=== PATIENT | male | born 1960 | race Caucasian/White ===

== ENCOUNTER → 2019-03-21 15:43 | Outpatient (CLI) | payer MEDICARE ==
[2019-03-21 16:17] LABS: % SATURATION 8 % (15-55); IRON 35 ug/dl (35-150); TOTAL IRON BIND CAPACITY 405 ug/dl (260-445); UNSAT IRON BIND CAPACITY 370 ug/dl (150-375)
== END | disposition home or self-care (01) ==
LOC: D.LABREF 15:43
PROVIDERS: ATTEND Internal Medicine Gastroenterology
DX: K57.30 Diverticulosis of large intestine without perforation or abscess without bleeding (principal); K64.0 First degree hemorrhoids; R19.5 Other fecal abnormalities; D50.9 Iron deficiency anemia, unspecified

== ENCOUNTER 2019-07-11 17:24 | Inpatient (IN) | payer MEDICARE ==
[~2019-07-11] VITALS: Ht 190.5 cm; Wt 117.9 kg
[2019-07-11] MEDS ORDERED: NORVASC10 MG PO (17:45)
[2019-07-11] MEDS ORDERED: CLOTRIMAZOLE-BE30 ML TOPICAL (17:45)
[2019-07-11] MEDS ORDERED: BAYER CHEWABLE81 MG PO (17:45)
[2019-07-11] MEDS ORDERED: NEURONTIN 300300 MG PO (17:46)
[2019-07-11] MEDS ORDERED: HYDROCODON-ACE1 EA10 PO (17:46)
[2019-07-11] MEDS ORDERED: LISINOPRIL20 MG PO (17:46)
[2019-07-11] MEDS ORDERED: OMEPRAZOLE40 MG PO (17:46)
[2019-07-11] MEDS ORDERED: ZANAFLEX4 MG PO (17:47)
[2019-07-11 19:44] LABS: BASOPHILS 0.2 % (0-2); EOSINOPHILS 5.3 % (0-7); HEMATOCRIT 38.3 % (42.0-54.0); HEMOGLOBIN 12.1 g/dL (13.5-17.5); IMMATURE GRANULOCYTES 0.4 % (0-5); LYMPHOCYTES 15.2 % (15-50); MCH 24.7 pg (26.0-34.0); MCHC 31.6 g/dL (31.0-37.0); MCV 78.3 fL (80.0-100.0); MEAN PLATELET VOLUME 8.6 fL (7.4-10.4); MONOCYTES 8.4 % (2-11); NEUTROPHILS 70.5 % (40-80); PLATELET COUNT 387 10x3/uL (130-400); RBC 4.89 10x6/uL (4.20-6.10); RDW 16.2 % (11.5-14.5); WBC 13.9 10x3/uL (4.8-10.8)
[2019-07-11 19:45] LABS: APPEARANCE CLEAR (CLEAR); BILIRUBIN NEGATIVE (NEGATIVE); COLOR YELLOW (YELLOW); GLUCOSE NEGATIVE (NEGATIVE); KETONE NEGATIVE (NEGATIVE); NITRITE NEGATIVE (NEGATIVE); PROTEIN NEGATIVE (NEGATIVE); SPECIFIC GRAVITY 1.025 (1.005-1.020); UROBILINOGEN NORMAL (NORMAL)
[2019-07-11 19:51] LABS: CALC OSMOLALITY 279 mosm/kg (275-300); CALCIUM 8.3 mg/dL (8.5-10.1); CARBON DIOXIDE 23.6 mmol/L (21.0-32.0); CHLORIDE - SERUM 104 mmol/L (98-107); CREATININE - SERUM 0.7 mg/dL (0.6-1.3); GLUCOSE 122 mg/dL (74-106); POTASSIUM - SERUM 3.3 mmol/L (3.5-5.1); SODIUM 138 mmol/L (136-145); UREA NITROGEN 20 mg/dL (7-18); eGFR NON AFRICAN AMERICAN > 90 mL/min (90-120)
[2019-07-11 20:06] LABS: ALBUMIN 3.1 g/dL (3.4-5.0); ALKALINE PHOSPHATASE 93 U/L (46-116); ALT (SGPT) 22 U/L (10-68); BILIRUBIN - TOTAL 0.29 mg/dL (0.2-1.3); CKMB 2.3 U/L (0.0-3.6); CREATINE KINASE 65 UL (21-232); LIPASE 1367 U/L (73-393); PROTEIN - SERUM 7.9 g/dL (6.4-8.2); TROPONIN-I 0.043 ng/mL (0.000-0.060)
[2019-07-12] VITALS (7 sets, daily range): BP systolic 121–136; BP diastolic 66–88; Ht 190.5 cm; Wt 117.9 kg
--- NOTE | 2019-07-12 01:11 | NUR ---
PT TO ROOM 2129 VIA WHEELCHAIR ACCOMPANIED BY HOSPITAL STAFF.
--- NOTE | 2019-07-12 07:10 | NUR ---
REPORT RECIEVED FROM CLINICAL NURSE LEADER AND PT CARE ASSUMED. PT LAYING IN BED AWAKE, ALERFT AND ORIENTED X 4. PT IS STABLE AND DENIES ANY NEEDS OR PAIN. WILL CONTINUE WITH PLAN OF CARE. SR UP X 2 BED IN LOW POSITION AND CALL LIGHT IN REACH.
[2019-07-12 09:22] LABS: BASOPHILS 0.5 % (0-2); EOSINOPHILS 12.5 % (0-7); HEMATOCRIT 33.3 % (42.0-54.0); HEMOGLOBIN 10.2 g/dL (13.5-17.5); IMMATURE GRANULOCYTES 0.1 % (0-5); LYMPHOCYTES 21.7 % (15-50); MCH 24.5 pg (26.0-34.0); MCHC 30.6 g/dL (31.0-37.0); MCV 79.9 fL (80.0-100.0); MEAN PLATELET VOLUME 9.2 fL (7.4-10.4); MONOCYTES 9.5 % (2-11); NEUTROPHILS 55.7 % (40-80); PLATELET COUNT 344 10x3/uL (130-400); RBC 4.17 10x6/uL (4.20-6.10); RDW 16.5 % (11.5-14.5)
[2019-07-12 09:27] LABS: WBC 7.8 10x3/uL (4.8-10.8)
[2019-07-12 10:15] LABS: AMYLASE - SERUM 51 U/L (25-115); CALC OSMOLALITY 283 mosm/kg (275-300); CALCIUM 8.3 mg/dL (8.5-10.1); CARBON DIOXIDE 27.6 mmol/L (21.0-32.0); CHLORIDE - SERUM 107 mmol/L (98-107); CREATININE - SERUM 0.7 mg/dL (0.6-1.3); GLUCOSE 95 mg/dL (74-106); LIPASE 132 U/L (73-393); MAGNESIUM - SERUM 1.4 mg/dL (1.8-2.4); POTASSIUM - SERUM 3.4 mmol/L (3.5-5.1); SODIUM 143 mmol/L (136-145); UREA NITROGEN 11 mg/dL (7-18); eGFR NON AFRICAN AMERICAN > 90 mL/min (90-120)
--- NOTE | 2019-07-12 15:15 | NUR ---
PATIENT IS STABLE AND VSS. PATIENT DENIES ANY NEEDS OR PAIN. PATIENT SITTING UP IN BED WATCHING TV. WILL CONTINUE TO MONITOR. SR UPX 2 BED IN LOW POSITION AND CALL LIGHT IN REACH.
--- NOTE | 2019-07-12 16:35 | NUR ---
PATIENT UP TO BS CHAIR BY PT. PATIENT IS STABLE AND VSS. PT DENIES ANY NEEDS OR PAIN. CALL LIGHT IN [facility].
--- NOTE | 2019-07-12 19:10 | NUR ---
BEDSIDE REPORT RECEIVED FROM DAY SHIFT, PT CARE ASSUMED. WROTE NAME ON BOARD. PT SITTING UP IN BED WITH EYES CLOSED, RR EVEN AND NONLABORED, NO S/S OF DISTRESS, AROUSES EASILY TO VOICE, ORIENTED X4. DENIES ANY NEEDS AT THIS TIME. BED IN LOWEST POSITION, SR X1, CALL LIGHT AND URINAL WITHIN REACH. WILL CONTINUE TO MONITOR.
[2019-07-13] VITALS: BP 136/78
[2019-07-13 04:00] VITALS: BP 134/76
[2019-07-13 06:06] LABS: BASOPHILS 0.9 % (0-2); EOSINOPHILS 13.7 % (0-7); HEMATOCRIT 33.7 % (42.0-54.0); HEMOGLOBIN 10.4 g/dL (13.5-17.5); IMMATURE GRANULOCYTES 0.3 % (0-5); LYMPHOCYTES 23.4 % (15-50); MCH 24.4 pg (26.0-34.0); MCHC 30.9 g/dL (31.0-37.0); MCV 78.9 fL (80.0-100.0); MEAN PLATELET VOLUME 8.8 fL (7.4-10.4); MONOCYTES 12.5 % (2-11); NEUTROPHILS 49.2 % (40-80); PLATELET COUNT 296 10x3/uL (130-400); RBC 4.27 10x6/uL (4.20-6.10); RDW 16.5 % (11.5-14.5); WBC 6.9 10x3/uL (4.8-10.8)
[2019-07-13 06:45] LABS: ALBUMIN 2.6 g/dL (3.4-5.0); ALKALINE PHOSPHATASE 85 U/L (46-116); ALT (SGPT) 18 U/L (10-68); CALC OSMOLALITY 284 mosm/kg (275-300); CALCIUM 8.2 mg/dL (8.5-10.1); CARBON DIOXIDE 27.9 mmol/L (21.0-32.0); CHLORIDE - SERUM 107 mmol/L (98-107); CREATININE - SERUM 0.6 mg/dL (0.6-1.3); GLUCOSE 91 mg/dL (74-106); POTASSIUM - SERUM 3.4 mmol/L (3.5-5.1); SODIUM 144 mmol/L (136-145); eGFR NON AFRICAN AMERICAN > 90 mL/min (90-120)
[2019-07-13 06:46] LABS: UREA NITROGEN 8 mg/dL (7-18)
[2019-07-13 08:53] VITALS: BP 129/83
--- NOTE | 2019-07-13 10:55 | NUR ---
D/C INSTRUCTIONS REVIEWED WITH PT. VERBALZIED UNDERSTANDING AND NO FURTHER QUESTIONS AT THIS TIME. IV D/C WITH CATHETER TIP INTACT. PT LEFT VIA WHEELCHAIR TO PERSONAL VEHICLE WITH ALL BELONGINGS.
--- NOTE | 2019-07-13 17:58 | MORECARE ---
CASE MANAGEMENT DISCHARGE SUMMARY PATIENT: JAY JACKSON UNIT: [id number] ADM DATE: 07/11/19 AGE: 59 : 60 SEX: M ROOM/BED: D.2129 AUTHOR: SHIRA SPRING PHYSICIAN: REFERRING PHYSICIAN: JOANA DILLARD MD DATE OF SERVICE: 07/13/19 Discharge Plan Patient Name: JAY JACKSON [facility] [facility] 1960 Planned Disposition: Home Anticipated Discharge Date: Discharge Date: 07/13/2019 Expected LOS: Initial Reviewer: [email or web address] Initial Review Date: 07/13/2019 Generated: 07/13/19 6:58 pm Patient Name: JAY JACKSON Page [id number] at 1751 All edits/amendments must be made on the electronic document DICTATION DATE: 07/13/191757 CST: NADIA 07/13/191757 RPT#: [id number] DC DATE:07/13/19 STATUS: DIS IN [facility] [address] [place] [address] END OF REPORT
--- NOTE | 2019-07-13 18:09 | MORECARE ---
CASE MANAGEMENT DISCHARGE SUMMARY PATIENT: JAY JACKSON UNIT: [id number] ADM DATE: 07/11/19 AGE: 59 : 60 SEX: M ROOM/BED: D.3024 AUTHOR: SAWDOC PHYSICIAN: REFERRING PHYSICIAN: JOANA DILLARD MD DATE OF SERVICE: 07/13/19 Discharge Plan Patient Name: JAY JACKSON Facility: [facility]:[place] : 1960 Planned Disposition: Home Anticipated Discharge Date: Discharge Date: 07/13/2019 Expected LOS: Initial Reviewer: [email or web address] Initial Review Date: 07/13/2019 Generated: 07/13/19 7:08 pm Comments DCP- Discharge Planning Updated by [email or web address]: Daksha Buitrago on 07/13/19 4:[address] Patient Name: JAY JACKSON Admission Status: ER Accout number: [id number] Admission Date: 07-11-2019 : 1960 Admission Diagnosis: Attending: JOANA DILLARD Current LOS: 2 Anticipated DC Date: Planned Disposition: Home Primary Insurance: [facility] [employer] Discharge Planning Comments: CM met with patient at bedside after explaining CM role and obtaining verbal consent. Patient lives at home with his mother where he is independent with his care and plans to return there upon discharge. Patient feels this would be a safe discharge. CM discussed availability / needs of home health and medical equipment. Patient denies any discharge needs at this time. Patient states he will have his family drive him home upon discharge. CM will continue to follow and assist as needed with discharge planning / needs. Reporting Manager: Daksha Buitrago DCPIA - Discharge Planning Initial Assessment Updated by [email or web address]: Daksha Buitrago on 07/13/19 5:58 pm * Is the patient Alert and Oriented? Yes * How many steps to enter\exit or inside your home? * PCP RICHARD * [facility] * Preadmission Environment Home with Family * ADLs Independent * Other Equipment WALKER, W/C, CANE, LIFT CHAIR * List name and contact numbers for known caregivers / representatives who currently or will assist patient after discharge: STONE JACKSON - MOTHER - [phone] * Verbal permission to speak to the caregivers and representatives has been obtained from the patient. Yes * Community resources currently utilized None * Additional services required to return to the preadmission environment? No * Can the patient safely return to the preadmission environment? Yes * Has this patient been hospitalized within the prior 30 days at any hospital? No Last DP export: 07/13/19 4:58 p Patient Name: JAY JACKSON Page 19771 at 1809 All edits/amendments must be made on the electronic document DICTATION DATE: 07/13/191807 PLATING OPERATOR: NADIA 07/13/191807 RPT#: [id number] DC DATE:07/13/19 STATUS: DIS IN [facility] [address] [place] [address] END OF REPORT
== END 2019-07-13 11:25 | disposition home or self-care (01) | DRG 392 ==
LOC: D.ER 17:24 → D.M2 23:01
PROVIDERS: Emergency Medicine; ADMIT Internal Medicine Nephrology; ATTEND Internal Medicine Nephrology
DX: K52.9 Noninfective gastroenteritis and colitis, unspecified (principal); F17.213 Nicotine dependence, cigarettes, with withdrawal; K40.90 Unilateral inguinal hernia, without obstruction or gangrene, not specified as recurrent; D50.9 Iron deficiency anemia, unspecified; E87.6 Hypokalemia; E83.42 Hypomagnesemia; R91.8 Other nonspecific abnormal finding of lung field; I10 Essential (primary) hypertension; E78.5 Hyperlipidemia, unspecified; K21.9 Gastro-esophageal reflux disease without esophagitis; G47.33 Obstructive sleep apnea (adult) (pediatric)

== ENCOUNTER → 2019-07-23 16:12 | Outpatient (CLI) | payer MEDICARE ==
[2019-07-12 14:36] VITALS: BMI 32.4
[~2019-07-23 16:12] MED LIST: BAYER CHEWABLE81 MG PO; CLOTRIMAZOLE-BE30 ML TOPICAL; HYDROCODON-ACE1 EA10 PO; LISINOPRIL20 MG PO; NEURONTIN 300300 MG PO; NORVASC10 MG PO; OMEPRAZOLE40 MG PO; ZANAFLEX4 MG PO
== END | disposition home or self-care (01) ==
LOC: D.LABREF 16:12
PROVIDERS: ATTEND Internal Medicine Gastroenterology
DX: D50.9 Iron deficiency anemia, unspecified (principal); R19.5 Other fecal abnormalities; K31.89 Other diseases of stomach and duodenum; R12 Heartburn